=== PATIENT | male | born 1995 | race African-American/Black ===

== ENCOUNTER → 2018-08-05 | Emergency (ER) | payer BC, MEDICAID, OTHER ==
[~2018-08-05] VITALS: Ht 165.1 cm; Wt 72.6 kg
[~2018-08-05] MED LIST: BACITRACIN-P28.35 GM TP; Bacitracin Oint UD TOPIC ONE; NKM; NORCO 5-325 TA1 EACH ORAL; [UNRECOGNIZED DRUG - OTHER] TOPIC
--- NOTE | 2018-08-05 14:27 | Emergency Room Report ---
History of Present Illness General Chief Complaint: Skin Rash/Abscess Source: Patient Present Illness HPI 23-year-old male patient presents the ER complaining of bump on left side lower lip for the past week. Reports it started to drain. Denies fever, chest pain, shortness of breath. Denies history of cold sores or herpes. Reports has applied warm compresses. States has not massage or express any material from the bump. Denies other acute symptoms. Denies other aggravating or relieving factors. Denies sore throat. Denies fever, chest pain, shortness of breath. Allergies: Coded Allergies: No Known Allergies (Unverified , 07/10/13) Patient History Past Medical History: see triage record Reviewed Nursing Documentation: PMH: Agreed; PSxH: Agreed Nursing Documentation-PMH Past Medical History: No Stated History Review of Systems All Other Systems: negative except mentioned in HPI Physical Exam Vital Signs Date Time Temp Pulse Resp B/P (MAP) Pulse Ox O2 Delivery O2 Flow Rate FiO2 08/05/18 14:07 98.2 63 18 110/67 97 Room Air Sp02 EP Interpretation: reviewed, normal General Appearance: well appearing, no apparent distress, alert, GCS 15, non- toxic Head: normocephalic, atraumatic Eyes: bilateral eye normal inspection, bilateral eye PERRL ENT: hearing grossly normal, normal pharynx, no angioedema, normal voice, uvula midline, moist mucus membranes Neck: full range of motion Respiratory: lungs clear, normal breath sounds, no rhonchi, no respiratory distress, no accessory muscle use, no wheezing, speaking full sentences Cardiovascular #1: regular rate, rhythm, no edema Musculoskeletal: back normal, digits/nails normal, gait/station normal, normal range of motion, non-tender Neurologic: alert, oriented x3, responsive, motor strength/tone normal, sensory intact Psychiatric: mood/affect normal Skin: other - Less than 1 cm circular papule noted on left lower side lip, able to express pus, no surrounding erythema or edema, no fluctuance or induration Lymphatic: no adenopathy Medical Decision Making PA Attestation Dr. Laguerre is my supervising Physician whom patient management has been discussed with. Diagnostic Impression: Primary Impression: Lesion of lip ER Course Pt. presents to the ED c/o bump on lip. Ddx considered but are not limited to atopic dermatitis, acne, herpes, cold sore , cellulitis, abscess, folliculitis. Vital signs: are WNL, pt. is afebrile ER COURSE Bacitracin applied on the ER. Physical exam not consistent with cold sore. Able to express pus while in the ER. On physical exam likely acne/pimple. Does not require oral antibiotics. Will treat patient with topical antibiotic and discharged home with antibiotic and benzoyl peroxide. Take Tylenol for pain symptoms. Apply warm compresses and massage to express pus. Followup with dermatology. DISCHARGE: -Rx given for Benzoyl peroxide. -Rx given for Bacitracin At this time pt. is stable for d/c to home. Patient resting comfortably, in no acute distress, nontoxic appearing.. Will provide printed patient care instructions, and any necessary prescriptions. Care plan and follow up instructions have been discussed with the patient prior to discharge. Patient provided with list of healthcare clinics to establish primary care physician. Patient instructed to follow-up with primary care provider in 3 - 5 days. Patient questions asked and answered. ER precautions given. Patient instructed to return to ER immediately for any new or worsening of symptoms including but not limited to increasing SOB, persistent fever. - Please note that this Emergency Department Report was dictated using [employer] educ[employer] technology software, occasionally this can lead to erroneous entry secondary to interpretation by the dictation equipment. Last Vital Signs Date Time Temp Pulse Resp B/P (MAP) Pulse Ox O2 Delivery O2 Flow Rate FiO2 08/05/18 14:07 98.2 63 18 110/67 97 Room Air Status: improved Disposition: HOME, SELF-CARE Condition: Stable Scripts Benzoyl Peroxide (Acne Cream) 30 Gm Cream..g. 30 GM TOPIC BID, #30 GM Prov: Mark Mcfarlane 08/05/18 Bacitracin/Polymyxin B Sulfate (BACITRACIN-POLYMYXIN OINTMENT) 28.35 Gm Oint...g. 1 APPLIC TP BID, #28 GM Prov: Mark Mcfarlane 08/05/18 Patient Instructions: Acne, [id number], Cold Sore, [id number] Additional Instructions: Followup with primary care provider in 3 -5 days. Request referral to dermatology as needed. Apply warm compresses and massage to express pus. Take medications as directed. Patient questions asked and answered. ER precautions given, patient instructed to return to ER immediately for any new or worsening of symptoms. [facility] Mark Mcfarlane Aug 05, 2018 14:27
[2018-08-05 14:38] VITALS: BP 110/67
[2018-08-05 14:46] VITALS: BP 110/67
== END | disposition home or self-care (01) ==
LOC: EMR 14:46
DX: K13.0 Diseases of lips (principal)
CPT/HCPCS: 99282